=== PATIENT | female | born 1965 | race Asian ===

== ENCOUNTER → 2019-12-25 | Outpatient (CLI) | payer MEDICARE ==
[~2019-12-25] MED LIST: ACET-1600 PO; ATOR40TA78 PO; CETI10CA PO; LISI-170 PO; METF500T17 PO; OXYC5CAP2 PO; TRAM50TA2 PO
== END | disposition home or self-care (01) ==
LOC: STAR 13:43
PROVIDERS: ATTEND Anesthesiology
DX: Z01.812 Encounter for preprocedural laboratory examination (principal); Z20.828 Contact with and (suspected) exposure to other viral communicable diseases
CPT/HCPCS: 36415; 87635